=== PATIENT | male | born 1970 | race Two or more races ===

== ENCOUNTER 2019-08-25 02:52 | Emergency (ER) | payer MEDICAID ==
[~2019-08-25] VITALS: Ht 177.8 cm; Wt 91.2 kg
--- NOTE | 2019-08-25 02:55 | NUR ---
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 PT STATES HE WAS SLEEPING, PAIN WOKE HIM UP. DENIES RADIATION OF PAIN, HEADACHE, NAUSEA, DIZZINESS, SOB. PT AAOX4. RESPIRATIONS EVEN AND UNLABORED. SKIN WARM AND INTACT. NO ACUTE DISTRESS NOTED AT THIS TIME. PLACED IN GOWN AND ON CONTINUOUS PHOTOGRAPHY INTERN, WILL CONTINUE TO MONITOR
--- NOTE | 2019-08-25 03:07 | NUR ---
IV INITIATED LAC 18G. LABS DRAWN FROM SITE. 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 IV INTACT AND PATENT, PLACED ON SALINE LOCK
[2019-08-25 03:12] LABS: BASOPHILS # (AUTO) 0.1 /CMM (0.0-0.2); BASOPHILS % (AUTO) 1.2 % (0.0-2.0); EOSINOPHILS % (AUTO) 3.7 % (0.0-6.0); HEMATOCRIT 42 % (39-51); HEMOGLOBIN 15.9 g/dL (13.5-17.5); LYMPHOCYTES # (AUTO) 3.1 /CMM (0.8-4.8); LYMPHOCYTES % (AUTO) 32.4 % (20.0-44.0); MEAN CORPUSCULAR HGB CONC 38 g/dl (31.0-36.0); MEAN CORPUSCULAR VOLUME 89 fL (80-96); MONOCYTES # (AUTO) 0.6 /CMM (0.1-1.30); MONOCYTES % (AUTO) 6.8 % (2.0-12.0); NEUTROPHILS # (AUTO) 5.3 /CMM (1.8-8.9); NEUTROPHILS % (AUTO) 55.9 % (43.0-81.0); PLATELET COUNT (AUTO) 278 /CMM (150-450); RED BLOOD CELL COUNT(AUTO) 4.74 MIL/uL (4.5-6.0); WHITE BLOOD COUNT (AUTO) 9.6 K/uL (4.3-11.0)
[2019-08-25] MEDS ORDERED: ASPIRIN 325 MG TABLET ONE (03:14)
[2019-08-25] MEDS ORDERED: NITROGLYCERIN 0.4 MG/TAB BOTTLE ONE (03:14)
--- NOTE | 2019-08-25 03:18 | NUR ---
0317 FIRST NITROGLYCERIN SL GIVEN. BP 149/114 HR 84 PAIN 4/10 PRESSURE, INTERMITENT
[2019-08-25 03:21] LABS: CALCIUM, SERUM 7.9 mg/dL (8.5-10.1); CARBON DIOXIDE 24 mmol/L (21-32); CHLORIDE 105 mmol/L (98-107); CREATININE 0.9 mg/dL (0.6-1.3); GLUCOSE 165 mg/dL (74-106); POTASSIUM 3.8 mmol/L (3.5-5.1); SODIUM SERUM 140 mmol/L (136-145); UREA NITROGEN, BLOOD 16 mg/dL (7-18)
[2019-08-25] MEDS ORDERED: ASPIRIN 325 MG TABLET PO ONE (03:30)
[2019-08-25] MEDS ORDERED: NITROGLYCERIN 0.4 MG/TAB BOTTLE SL ONE (03:30)
--- NOTE | 2019-08-25 03:56 | NUR ---
PT RESTING COMFORTABLY IN BED. VITAL SIGNS STABLE. NO ACUTE DISTRESS NOTED AT THIS TIME. 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
[2019-08-25 04:27] VITALS: BP 119/76
--- NOTE | 2019-08-25 04:27 | NUR ---
Patient discharged to home in stable condition. Written and verbal after care instructions given. Patient verbalizes understanding of instruction.IV removed. Catheter intact and site benign. Pressure and 4x4 applied to site. No bleeding noted.Pt ambulatory with a steady gait
== END 2019-08-25 04:27 | disposition home or self-care (01) ==
LOC: ER 02:53
DX: R07.89 Other chest pain (principal); I10 Essential (primary) hypertension; F17.200 Nicotine dependence, unspecified, uncomplicated
CPT/HCPCS: 36415; 71045-TC; 80048-TC; 84484-TC; 85025-TC